=== PATIENT | female | born 1990 | race Two or more races ===

== ENCOUNTER 2022-08-31 09:56 | Day surgery (SDC) | payer OTHER, SELFPAY ==
[2022-08-25 12:29] VITALS: BMI 23.8
[2022-08-31] VITALS (9 sets, daily range): BP systolic 101–119; BP diastolic 63–71; PULSE 56–82; RESP 16–18; TEMP 36.7–36.9; O2SAT 96–100; BMI 22.8
[2022-08-31 10:26] LABS: UPreg QC Valid YES; Urine Pregnancy NEGATIVE (NEGATIVE)
[2022-08-31] MEDS: Lactated Ringers 1,000 ML 100 ML IVCONT (11:39)
--- NOTE | 2022-08-31 11:39 | PC.NURSE ---
Patient arrived with two facial piercings in. Dr. Connolly and Dr. Jameson at bedside to see piercings. Per both, okay to go into procedure room with them. Waiver signed.
--- NOTE | 2022-08-31 12:23 | HO.ANESPROP2 ---
[facility] Past Medical History Medical History Anemia Anxiety and depression Asthma Bipolar disorder History of COVID-19 Medical cannabis use Family History Family history of problems with anesthesia: No Surgical History Surgical History (Updated 08/25/22 @ 12:13 by Evonne Varela RN) History of appendectomy History of eye surgery History of surgery on lower extremity History of Problems with Anesthesia: No Social History Social History Patient Tobacco Use Status: Current everyday Tobacco user Tobacco use type: Cigarette Years Smoked: 18 Smoked in Last 30 Days: Yes Use of substances other than those prescribed or required for medical reasons: Yes Substance Use Frequency: Daily Are you DNR?: No Advance Directives: No Advance Directives Information Provided: Yes Meds Allergies Allergy/AdvReac Type Severity Reaction Status Date / Time No Known Allergies Allergy Verified 08/31/22 10:33 Active Medications: Current Medications Albuterol Sulfate (Albuterol Sulfate (0.083%) 2.5 Mg/3 Ml Vial.Neb) 2.5 mg INHALE ONCE PRN PRN Reason: Shortness of Breath/Wheezing Lactated Ringer's (Lr) 1,000 mls @ 100 mls/hr IVCONT .Q10H ISAIAS Last Admin: 08/31/22 11:39 Dose: 100 mls/hr Home Medications Medication Instructions Recorded Confirmed Last Taken Type acetaminophen 325 mg tablet 650 mg PO Q4H PRN Pain 08/25/22 08/25/22 Unknown History albuterol sulfate 90 mcg/actuation 2 puff inhalation Q6H PRN Wheezing 08/25/22 08/25/22 Unknown History aerosol inhaler (ProAir HFA) citalopram 20 mg tablet 20 mg PO DAILY 08/25/22 08/25/22 Unknown History clonidine HCl 0.1 mg tablet 0.1 mg PO BEDTIME 08/25/22 08/25/22 Unknown History ibuprofen 600 mg tablet 600 mg PO QID 08/25/22 08/31/22 07/01/22 History trazodone 100 mg tablet 100 mg PO BID 08/25/22 08/25/22 Unknown History Exam Exam Date and Time: August 31, 2022 1223 Height,Weight and Vital Signs: Height 5 ft 2 in Weight 56.699 kg Last Vital Signs Temp 98.1 F 08/31/22 10:32 Pulse 81 08/31/22 10:32 Resp 16 08/31/22 10:32 BP 101/63 08/31/22 10:32 Pulse Ox 99 08/31/22 10:32 O2 Del Method 08/31/22 10:32 Pertinent Lab Results Pertinent Lab Results: Laboratory Tests 08/31/22 10:07 Urine Test NEGATIVE Airway Mallampati Class: II TM Dist: >3cm Neck ROM: Full Heart: rrr Lungs: cta Assessment and Plan Assessment Anesthesia Assessment: Anesthesia Plan Discussed and Chart Reviewed Final Anesthetic Review Family History of Problems with Anesthesia: No History of Problems with Anesthesia: No NPO: Yes ASA Class: II Final Preanesthetic Review: No Changes in Pt Med Stat, Meds/Allgs Chart Reviewed and Consent Obtained/Reviewed Patient Risk: Intermediate Procedure Risk: Intermediate Anesthetic Plan Anesthetic Plan: GA Disposition: Standard PACU
[2022-08-31] MEDS: Tetracaine HCl/PF 0.5% Oph Sol 4 ML DROPS 1 DROP EYE-BOTH ×2 (14:00→14:48)
[2022-08-31] MEDS: oxyCODONE HCl Immed Release 5 MG TABLET PO (14:20)
[2022-08-31] MEDS: Acetaminophen 325 MG TABLET 650 MG PO (14:20)
--- NOTE | 2022-08-31 15:03 | HO.OPHTHAL ---
Ophthalmology Operative Note Date of Service: 08/31/22 Narrative: Diagnosis exotropia. Procedures 1. Recession of left lateral rectus muscle 9 mm. 2. Resection of left medial rectus muscle [address] Connolly anesthesia general complications none. The patient was brought to the operating room placed under general anesthesia. The patient's eyes were prepped and draped in the usual sterile ophthalmic fashion. Both eyes were examined and the right eye had previous strabismus surgery so the lid speculum was left in the left eye. An incision was made down to bare sclera in the inferotemporal fornix. The lateral rectus muscle was hooked and secured with a double-armed Vicryl suture. The muscle was then disinserted from the globe of the globe and reattached to a position 9 mm behind the original insertion. Conjunctiva was closed with interrupted Vicryl sutures. An incision was then made down to bare sclera in the inferonasal fornix. The medial rectus muscle was hooked and dissected free of its overlying fascial attachments. It was grasped at its insertion with a Arnol muscle clamp and an 8 mm resection was marked off with cautery. The resection point was secured with a double-arm Vicryl suture and the distal muscle was resected. The resection point was then drawn forward to the original insertion using the Vicryl suture. Conjunctiva was closed with interrupted Vicryl sutures. The patient was then awoken from general anesthesia and discharged to postoperative recovery in good condition.
== END 2022-08-31 15:20 | disposition home or self-care (01) ==
PROVIDERS: Nurse Practitioner; Visit Provider Ophthalmology
PROC: (CPT 67312; principal; 2022-08-31 11:50)
DX: H50.112 Monocular exotropia, left eye (principal); D64.9 Anemia, unspecified; J45.909 Unspecified asthma, uncomplicated; F41.8 Other specified anxiety disorders; Z79.899 Other long term (current) drug therapy; F17.210 Nicotine dependence, cigarettes, uncomplicated; F12.90 Cannabis use, unspecified, uncomplicated; Z86.16 Personal history of COVID-19
CPT/HCPCS: 67312; 81025; J0330; J1100; J1885; J2250; J2405; J3010